=== PATIENT | male | born 1960 | race Caucasian/White ===

== ENCOUNTER 2018-07-09 13:09 | Emergency (ER) | payer MEDICAID ==
[~2018-07-09] VITALS: Ht 180.3 cm; Wt 66.8 kg
[2018-07-09 13:14] VITALS: BP 153/106; Ht 180.3 cm; Wt 66.8 kg
== END 2018-07-09 14:40 | disposition left against medical advice (07) ==
LOC: D.ER 13:09
DX: H92.01 Otalgia, right ear (principal); R04.2 Hemoptysis